=== PATIENT | female | born 1990 | race African-American/Black ===

== ENCOUNTER 2017-03-05 19:29 | Emergency (ER) | payer SELFPAY ==
[~2017-03-05] VITALS: Ht 162.6 cm; Wt 59.0 kg
[2017-03-05] MEDS: LORazepam 1 MG TABLET PO ONE (19:52)
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
[2017-03-05 21:34] VITALS: BP 135/84
== END 2017-03-05 21:38 | disposition home or self-care (01) ==
LOC: ER 19:29
DX: F41.0 Panic disorder [episodic paroxysmal anxiety] (principal); F45.8 Other somatoform disorders
CPT/HCPCS: 99284